=== PATIENT | female | born 2000 | race American Indian/Alaskan Native ===

== ENCOUNTER 2019-10-25 18:45 | Emergency (ER) | payer OTHER ==
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
[2019-10-25] MEDS ORDERED: ACETAMINOPHEN 325 MG TAB PO ONE (22:41)
[2019-10-25] MEDS ORDERED: ACETAMINOPHEN 325 MG TAB ONE (22:42)
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
[2019-10-26 02:45] VITALS: BP 122/78
== END 2019-10-25 23:57 | disposition home or self-care (01) ==
LOC: EDBD → ED 18:45
DX: M25.561 Pain in right knee (principal); M25.562 Pain in left knee; R51 Headache; V89.2XXA Person injured in unspecified motor-vehicle accident, traffic, initial encounter; Y93.89 Activity, other specified; Y92.410 Unspecified street and highway as the place of occurrence of the external cause; Y99.8 Other external cause status
CPT/HCPCS: 76805